=== PATIENT | male | born 1965 | race Caucasian/White ===

== ENCOUNTER 2020-04-14 22:27 | Emergency (ER) | payer OTHER ==
--- OUTSIDE RECORDS SUMMARY | 2020-04-14 22:49 | XMS ---
:1965 Author Organization [facility] Support Name Relationship Address Phone [place]available [place] [address] JERAMY [employer]NANDE[employer] [address] [place] [address] Re-disclosure Warning The records that you are about to access may contain information from federally- assisted alcohol or drug abuse programs. If such information is present, then the following federally mandated warning applies: This information has been disclosed to you from records protected by federal confidentiality rules (42 CFR part 2). The federal rules prohibit you from making any further disclosure of this information unless further disclosure is expressly permitted by the written consent of the person to whom it pertains or as otherwise permitted by 42 CFR part 2. A general authorization for the release of medical or other information is NOT sufficient for this purpose. The Federal rules restrict any use of the information to criminally investigate or prosecute any alcohol or drug abuse patient.The records that you are about to access may contain highly sensitive health information, the redisclosure of which is protected by Article 27-F of the [facility] Public Health law. If you continue you may haveaccess to information: Regarding HIV / AIDS; Provided by facilities licensed or operated by the [facility] Office of Mental Health; or Provided by the [facility] Office for People With Developmental Disabilities. If such information is present, then the following [facility] mandated warning applies: This information has been disclosed to you from confidential records which are protected by state law. State law prohibits you from making any further disclosure of this information without the specific written consent of the person to whom it pertains, or as otherwise permitted by law. Any unauthorized further disclosure in violation of state law may result in a fine or snf sentence or both. A general authorization for the release of medical or other information is NOT sufficient authorization for further disclosure. Insurance Providers Payer Policy type Policy ID Covered Covered green party's Policy Pl an name / Coverage green party ID relationship to [facility] [employer] type [employer] PPO [id number]
[2020-04-14 22:50] VITALS: TEMP 98; BMI 25.8
--- NOTE | 2020-04-14 23:27 | PDOC ---
History of Present Illness - General Chief Complaint: Nausea/Vomiting Stated Complaint: ABD PAIN/ SENT BY PCP Time Seen by Provider: 04/14/20 23:13 Past History - Medical History Allergies/Adverse Reactions: Allergies Allergy/AdvReac Type Severity Reaction Status Date / Time No Allergy Information Allergy Verified 04/15/20 03:03 Available Home Medications: Ambulatory Orders Ondansetron [Zofran *Odt*] 4 mg SL TID PRN #21 od.tablet 04/15/20 COPD: No Kidney Stones: Yes - Psycho-Social/Smoking History Smoking History: Never smoked - Substance Abuse Hx (Audit-C & DAST Scrn) How often the patient has a drink containing alcohol: Monthly or less How often the patient has six or more drinks on one occasion: Less than monthly Score: In Men: 4 or > Positive; In Women: 3 or > Positive: 2 Screen Result (Pos requires Nsg. Audit-10AR): Negative In the last yr the pt used illegal drug/Rx for NonMed reason: No Score: Yes response is considered Positive: 0 Screen Result (Positive result requires Nsg. DAST-10): Negative *Physical Exam - Vital Signs Last Vital Signs Temp Pulse Resp BP Pulse Ox 98 F 84 19 141/87 96 04/14/20 22:32 04/14/20 22:32 04/14/20 22:32 04/14/20 22:32 04/14/20 22:32 ED Treatment Course - LABORATORY CBC & Chemistry Diagram: 04/14/20 23:30 04/14/20 23:30 Medical Decision Making - Medical Decision Making 04/14/20 23:29 HPI: 55yo M hx kidney stones sent from [facility] for epigastric pain. Pt c/o sudden onset severe stabbing epigastric nonradiating pain with associated nausea, NBNB emesis x2, diaphoresis, and SOB 1hr after eating eggplant dip (made by girlfriend, not spicy or fatty, girlfriend not sick). Pt tried CBD oil rubbed on stomach without improvement. [facility] gave zofran with improvement of sx except for mild nausea. Now only endorses mild nausea. Endorses similar episode 1yr ago that resolved on own, was supposed to follow up for gallbladder eval but never did. Denies alcohol, smoking, drugs, hx CAD, FHx early CAD, sick contacts, myalgias, headache, rhinorrhea, congestion, chest pain, F/C, cough, covid, diarrhea, constipation, blood in stool. ROS: Constitutional: Positive for diaphoresis. Negative for chills, fever, fatigue. HENT: Negative for sore throat, rhinorrhea, congestion. Eyes: Negative for visual disturbance. Respiratory: Positive for shortness of breath. Negative for cough, and wheezing. Cardiovascular: Negative for chest pain, palpitations, and leg swelling. Gastrointestinal: Positive for epigastric pain, nausea, and vomiting. Negative for blood in stool, constipation, diarrhea. Genitourinary: Negative for dysuria, flank pain, and hematuria. Musculoskeletal: Negative for myalgias, back pain, and neck pain. Skin: Negative for rash. Neurological: Negative for light-headedness, dizziness, vertigo, syncope, weakness, numbness and headaches. Psychiatric/Behavioral: Negative for behavioral problems and confusion. PE: Gen: Alert, NAD, comfortable-appearing. HEENT: PERRL, EOMI, MMM, NCAT. No conjunctival pallor. Sclera are non-icteric. CV: Regular rate and rhythm. No murmurs, rubs, or gallops. PULM: No resp distress. CTAB, no wheezes, rales, or rhonchi. ABD: soft, NT/ND, no rebound tenderness or guarding, no CVA tenderness. BACK: No TTP of c/t/l-spine. No step-offs or deformities. MSK: No bony deformities. 2+ pulses in all extremities. NEURO: AAOx3. PERRL. No gross CN deficits. Strength and sensation grossly intact throughout. Normal gait. EXTREMITIES: No cyanosis. No clubbing. No edema. PSYCH: Normal mood and thought pattern. SKIN: Warm and dry. Normal capillary refill. No rashes. No jaundice. MDM: 55yo M hx kidney stones sent from [facility] for epigastric pain. Pt c/o sudden onset severe stabbing epigastric nonradiating pain with associated nausea, NBNB emesis x2, diaphoresis, and SOB 1hr after eating eggplant dip (made by girlfriend, not spicy or fatty, girlfriend not sick). Hemodynamically stable, afebrile, benign abdomen. Ddx: likely GERD vs food poisoning. Also consider GB pathology such as cholelithiasis - POCUS GB and labs. Also consider viral syndrome, ACS/GA (though low risk), pancreatitis, arrhythmia, PNA, infection, metabolic derangement, anemia. -EKG -CXR -CBC,CMP,Lipase,Cardiac profile (trop x2) -POCUS GB -IVF -Pepcid, Ofirmev -Dispo: pending workup and reassessment, likely d/c home Labs reviewed. WBC 14.8, likely due to vomiting. No other concerning findings. EKG reviewed: normal sinus rhythm, 75bpm, normal axis, normal intervals, no TWIs, no ST elevations or depressions CXR reviewed: No acute pathology 04/15/20 02:34 Continued mild nausea -Reglan 04/15/20 03:52 Pt feels better. 2nd trop negative Will discharge home with PCP f/u. Return precautions given. Pt understands all discharge instructions and all questions were answered. Discharge - Discharge Information Problems reviewed: Yes Clinical Impression/Diagnosis: Epigastric pain Condition: Improved Disposition: HOME - Admission No - Additional Discharge Information Prescriptions: Ondansetron [Zofran *Odt*] 4 mg SL TID PRN #21 od.tablet PRN Reason: Nausea And/Or Vomiting - Follow up/Referral Referrals: ON STAFF,NOT [Primary Care Provider] - - Patient Discharge Instructions Patient Printed Discharge Instructions: DI for Gastroesophageal Reflux Disease (GERD) Additional Instructions: You have been seen in the Emergency Department for your abdominal pain, nausea, and vomiting. Your EKG, chest X-ray, and labs, including Troponin (a heart enzyme), show no signs concerning for an emergent condition such as a heart attack or pneumonia at this time. The cause of your symptoms is unknown but is most likely due to reflux (GERD) or a viral syndrome (such as food poisoning). If you experience pain, you can take Tylenol as directed on the medication bottle, but do not exceed 4g of Tylenol a day. You can also try over the counter GERD medications such as pepcid or maalox. We have sent a prescription for nausea to your pharmacy Capsule - take as prescribed as needed for nausea and vomiting. Follow-up with your primary care doctor within 1 week. Your doctor may want to do further studies such as a H Pylori test. Return to the Emergency Department immediately if you experience chest pain, difficulty breathing, passing out, inability to keep down fluids, worsening abdominal pain, or any other new or worsening symptom. - Post Discharge Activity
[2020-04-14] MEDS ORDERED: ACETAMINOPHEN 1000 MG/100 ML VIAL (NON FORMULARY) IVPB ONE (23:28)
[2020-04-14] MEDS ORDERED: SODIUM CHLORIDE 0.9% 500 ML INFUS.BAG IV ONE (23:28)
[2020-04-14] MEDS ORDERED: FAMOTIDINE 20 MG/50 ML IVPB 20 MG/50 ML MG IVPB ONE (23:28)
[2020-04-14 23:45] LABS: BASO % 0.5 % (0-2.0); EOS % 0.3 % (0-4.5); HEMATOCRIT 47.7 % (35.4-49); HEMOGLOBIN 16.2 GM/dL (11.7-16.9); LYMPH % 6.7 % (8-40); MCH 31.3 pg (25.7-33.7); MCHC 34.1 g/dl (32.0-35.9); MEAN CELL VOLUME 91.8 fl (80-96); MEAN PLT VOLUME 9.3 fl (7.5-11.1); MONO % 4.7 % (3.8-10.2); NEUT % 87.8 % (42.8-82.8); PLATELET COUNT 258 K/MM3 (134-434); RBC 5.19 M/mm3 (4.00-5.60); RDW 13.3 % (11.9-15.9); WHITE BLOOD COUNT 14.8 K/mm3 (4.0-10.0)
--- NOTE | 2020-04-15 00:07 | PDOC ---
Documentation entered by Jocelin García SCRIBE, acting as scribe for Mariah Fatima DO. Mariah Fatima, : This documentation has been prepared by the Raquel potts Brenda, SCRIBE, under my direction and personally reviewed by me in its entirety. I confirm that the documentation accurately reflects all work, treatment, procedures, and medical decision making performed by me. Attending Attestation - Resident Resident Name: JoseKimberlyn - ED Attending Attestation I have performed the following: I have examined & evaluated the patient, The case was reviewed & discussed with the resident, I agree w/resident's findings & plan, Exceptions are as noted - HPI HPI: 04/14/20 23:48 The patient is a 55 year old male who presents to the ED for evaluation of nausea and vomiting. - Physicial Exam PE: 04/14/20 23:51 GENERAL: Awake, alert, and fully oriented, in no acute distress NECK: Normal ROM, supple, no lymphadenopathy, JVD, or masses LUNGS: Breath sounds equal, clear to auscultation bilaterally. No wheezes, and no crackles HEART: Regular rate and rhythm, normal S1 and S2, no murmurs, rubs or gallops ABDOMEN: (+) Mild epigastric tenderness. Soft, normoactive bowel sounds. No guarding, no rebound. No masses EXTREMITIES: Normal range of motion, no edema. No clubbing or cyanosis. No cords, erythema, or tenderness NEUROLOGICAL: Cranial nerves II through XII grossly intact. Normal speech, normal gait SKIN: Warm, Dry, normal turgor, no rashes or lesions noted. - Medical Decision Making 04/15/20 00:05 a/p: 55yo male with epigastric pain today assoc with sob, nausea, and diaphoresis -no ruq ttp -mild epigastric ttp -no burning in chest -denies cp during the event -POCUS ultrasound neg for gallstones -will send labs, ekg, cxr -pt received zofran and has felt better since -will monitor and reassess -will need 2 trop 04/15/20 00:06 pt has been signed out to the oncoming ed physician pending labs and further eval Discharge - Discharge Information Problems reviewed: Yes Clinical Impression/Diagnosis: Epigastric pain Condition: Stable - Follow up/Referral Referrals: ON STAFF,NOT [Primary Care Provider] - - Patient Discharge Instructions - Post Discharge Activity
[2020-04-15 00:14] LABS: ALBUMIN 3.7 g/dl (3.4-5.0); ALK PHOS 54 U/L (45-117); ANION GAP 7 MMOL/L (8-16); BLOOD UREA NITROGEN 18.3 mg/dL (7-18); CALCIUM 9.4 mg/dL (8.5-10.1); CHLORIDE 104 mmol/L (98-107); CO2 29 mmol/L (21-32); CREATININE 1.2 mg/dL (0.55-1.3); GLUCOSE,RANDOM 131 mg/dL (74-106); LIPASE 90 U/L (73-393); POTASSIUM 4.4 mmol/L (3.5-5.1); SGOT/AST 14 U/L (15-37); SGPT/ALT 22 U/L (13-61); SODIUM 139 mmol/L (136-145); TOT PROT 6.9 g/dl (6.4-8.2)
[2020-04-15] MEDS ORDERED: METOCLOPRAMIDE HCL INJECTION 10 MG/2 ML VIAL IVPB ONE (00:40)
[2020-04-15 03:13] VITALS: BP 112/68; PULSE 86
[2020-04-15] MEDS ORDERED: ONDANSETRON 4 MG/2 ML VIAL IVPUSH ONE (03:38)
[2020-04-15] MEDS ORDERED: FAMOTIDINE 20 MG/50 ML IVPB 20 MG/50 ML MG IVPB ONE (03:53)
--- NOTE | 2020-04-15 10:33 | EKG ---
Test Reason : Blood Pressure : / mmHG Vent. Rate : 075 BPM Atrial Rate : 075 BPM P-R Int : 142 ms QRS Dur : 086 ms QT Int : 420 ms P-R-T Axes : 063 053 042 degrees QTc Int : 469 ms NORMAL SINUS RHYTHM NONSPECIFIC ST ABNORMALITY NO PREVIOUS ECGS AVAILABLE Confirmed by SILVER FISHER MD ([id number]) on 04/15/2020 10:33:05 AM Referred By: Confirmed By:SILVER FISHER MD
== END 2020-04-15 04:09 | disposition home or self-care (01) ==
LOC: JER 22:27
PROC: 3E033GC Introduction of Other Therapeutic Substance into Peripheral Vein, Percutaneous Approach (ICD-10-PCS; principal; 2020-04-14)
DX: R10.13 Epigastric pain (principal)
CPT/HCPCS: 36415; 71046-TC-FY; 76705-TC; 80053; 82550; 83690; 84484; 85025; 93005; 93010; 99285-25; J0131